=== PATIENT | female | born 1960 | race American Indian/Alaskan Native ===

== ENCOUNTER 2017-07-07 12:28 | Emergency (ER) | payer OTHER ==
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
[2017-07-07] MEDS ORDERED: MOTRIN PO ONE (14:43)
[2017-07-07 15:36] VITALS: BP 131/83
== END 2017-07-07 15:33 | disposition home or self-care (01) ==
LOC: ED 12:28
DX: S39.012A Strain of muscle, fascia and tendon of lower back, initial encounter (principal); S13.4XXA Sprain of ligaments of cervical spine, initial encounter; V89.2XXA Person injured in unspecified motor-vehicle accident, traffic, initial encounter; Y93.9 Activity, unspecified; Y92.89 Other specified places as the place of occurrence of the external cause; Y99.8 Other external cause status
CPT/HCPCS: 99282